=== PATIENT | female | born 1960 | race Caucasian/White ===

== ENCOUNTER → 2016-05-13 | Outpatient (CLI) | payer OTHER ==
--- NOTE | 2016-05-13 17:01 | Diagnostic Imaging Report ---
Three views of the lumbar spine. INDICATION: Low back pain. FINDINGS: There is right convexity scoliosis. The alignment at the posterior spinal line is satisfactory. The vertebral body heights are preserved. There is moderate disc height loss at the L4-L5 and mild disc height loss at the L3-L4 and L5-S1 levels. Multilevel anterior osteophytes noted. No posterior osteophyte is seen. Sclerotic degenerative changes in the lower lumbar spine facet joints also noted. There are sclerotic degenerative changes in the SI joints. IMPRESSION: Right convexity scoliosis. Degenerative changes. Dictated by: Dictated on workstation # [id number]
--- NOTE | 2016-05-13 17:04 | Diagnostic Imaging Report ---
Three views of the thoracic spine. INDICATION: Back pain. FINDINGS: There is satisfactory alignment of the thoracic spine. The vertebral body heights are preserved. There are multilevel anterior osteophytes noted. No posterior osteophytes of significance identified. The paraspinal soft tissues appear grossly unremarkable. IMPRESSION: Minimal degenerative changes. Dictated by: Dictated on workstation # [id number]
== END ==
LOC: RAD 15:26
PROVIDERS: ATTEND Family Medicine
DX: M54.5 Low back pain (principal)
CPT/HCPCS: 72072; 72100

== ENCOUNTER → 2016-05-21 | Outpatient (CLI) | payer OTHER ==
--- OUTSIDE RECORDS SUMMARY | 2016-05-21 11:58 | XMS REPORT | Continuity of Care Document ---
Author Author [facility] Organization [facility] Address Unknown Phone Unavailable Allergies Active Description Code Type Severity Reaction Onset Reported/Identified Relationship to Patient Clinical Status Yes No Known Drug Allergies [id number] Drug Allergy Unknown N/ A 03/27/2007 Medications Problems Date Dx Coded Attending Type Code Diagnosis Diagnosed By 11/13/2014 ROSELINE REN MD Ot 793.80 02/27/2016 ELA SCHMITZ Ot Z12.31 ENCNTR SCREEN MAMMOGRAM FOR MALIGNANT NE 02/27/2016 ELA SCHMITZ Ot Z12.31 ENCNTR SCREEN MAMMOGRAM FOR MALIGNANT NE 05/13/2016 Ot 724.2 LUMBAGO 05/13/2016 Ot 564.00 UNSPEC CONSTIPATION 05/13/2016 Ot 592.0 CALCULUS OF KIDNEY 05/13/2016 Ot V76.12 OTH SCREEN MAMMO-MALIGN NEOPLASM OF [place] 05/13/2016 ROSELINE REN MD Ot V76.12 OTH SCREEN MAMMO-MALIGN NEOPLASM OF [place] 05/13/2016 ROSELINE REN MD Ot V76.12 OTH SCREEN MAMMO-MALIGN NEOPLASM OF [place] 05/13/2016 ROSELINE REN MD Ot 793.80 UNSPEC ABNORMAL MAMMOGRAM 05/13/2016 ELA SCHMITZ Ot Z12.31 ENCNTR SCREEN MAMMOGRAM FOR MALIGNANT NE Procedures Results Encounters ACCT No. Visit Date/Time Discharge Status Pt. Type Provider Facility Loc./Unit Complaint [id number] 11/11/2014 14:20:00 2014 23:59:59 CLS Outpatient ROSELINE REN MD [facility] RAD ABN MAMMO [id number] 10/29/2014 13:40:00 2014 23:59:59 CLS Outpatient ROSELINE REN MD [facility] RAD SCREENING [id number] 10/03/2012 14:50:00 2012 23:59:59 CLS Outpatient GELA LOUIS, ROSELINE Tate [facility] RAD SCREENING [id number] 05/21/2016 11:55:00 ACT Outpatient JAVI LUCAS MD [facility] RAD BACK PAIN,BILAT HIP PAIN [id number] 05/13/2016 15:26:00 ACT Outpatient JAVI LUCAS MD [facility] RAD LOW BACK PAIN [id number] 02/26/2016 11:01:00 ACT Outpatient ELA SCHMITZ [facility] RAD SCREENING [id number] 08/26/2011 15:23:00 Document Registration [id number] 12/22/2010 16:07:00 Document Registration
--- NOTE | 2016-05-21 12:47 | Diagnostic Imaging Report ---
PROCEDURE: MRI lumbar spine. TECHNIQUE: Multiplanar, multisequence MRI of the lumbar spine was performed without contrast. INDICATION: Back pain. FINDINGS: The alignment of the posterior spinal line is satisfactory. The vertebral body heights are preserved. There is disc desiccation at all levels. There is moderate disc height loss at L3-L4 and L4-L5 levels. The cauda equina and conus medullaris appear grossly unremarkable. There is right convexity scoliosis centered at the L2-L3 level. T12-L1: No disc herniation, no spinal canal or foraminal stenosis. L1-L2: There is mild disc bulge and mild facet hypertrophy. No central canal or lateral recess stenosis. L2-L3: There is mild disc herniation, and mild facet hypertrophy. No central canal, lateral recess or foraminal stenosis. L3-L4: There is a diffuse disc bulge and there is mild to moderate facet arthropathy. No central canal stenosis. There is mild lateral recess stenosis on the left side only. The left foramen demonstrates moderate stenosis and minimal stenosis is seen in the right foramen. L4-L5: There is a diffuse disc bulge and bilateral mild facet arthropathy. No central canal or lateral recess stenosis. There is mild foraminal narrowing on the right side and minimal foraminal narrowing on the left. L5-S1: There is a diffuse disc bulge and only mild facet hypertrophy is seen. No central canal or lateral recess stenosis. There is severe foraminal stenosis on the right side. No foraminal stenosis is seen on the left. IMPRESSION: Scoliosis, disc and facet degenerative changes seen. There is severe foraminal stenosis on the right side at L5-S1. No significant spinal canal stenosis at any level. Dictated by: Dictated on workstation # [id number]
== END ==
LOC: RAD 11:55
PROVIDERS: ATTEND Family Medicine
DX: M48.06 Spinal stenosis, lumbar region (principal)
CPT/HCPCS: 72148

== ENCOUNTER → 2018-04-17 | Outpatient (CLI) | payer OTHER ==
--- NOTE | 2018-04-18 12:42 | Diagnostic Imaging Report ---
Indication: Routine screening. Comparison is made with prior mammogram from 02/26/2016 and 10/29/2014. 2-D and 3-D bilateral screening mammography was performed with CAD. Both breasts are heterogeneously dense, limiting the sensitivity of mammography. The fibronodular parenchymal pattern appears to be fairly stable. No dominant mass or malignant-appearing microcalcifications are seen. The axillae are unremarkable. Impression: BI-RADS category 2 No mammographic features suspicious for malignancy are identified. ACR BI-RADS Category 2: Benign findings. Result letter will be mailed to the patient. Note: At least 10% of breast cancer is not imaged by mammography. Dictated by: Dictated on workstation # [id number]
== END ==
LOC: RAD 15:16
PROVIDERS: ATTEND Family Medicine
DX: Z12.31 Encounter for screening mammogram for malignant neoplasm of breast (principal)
CPT/HCPCS: 77067

== ENCOUNTER → 2019-04-18 | Outpatient (CLI) | payer OTHER ==
--- NOTE | 2019-04-18 13:00 | Diagnostic Imaging Report ---
INDICATION: Routine screening. COMPARISON: 04/17/2018 and 02/26/2016. TECHNIQUE: 2D and 3D bilateral screening mammography was performed with CAD. FINDINGS: Both breasts are heterogeneously dense, limiting the sensitivity of mammography. The circumscribed densities appear stable. No spiculated mass or malignant appearing microcalcifications are seen. The axillae are unremarkable. IMPRESSION: No mammographic features suspicious for malignancy are identified. ACR BI-RADS Category 2: Benign findings. Result letter will be mailed to the patient. Note: At least 10% of breast cancer is not imaged by mammography. Dictated by: Dictated on workstation # [id number]
== END ==
LOC: RAD 11:11
PROVIDERS: ATTEND Nurse Practitioner Family
DX: Z12.31 Encounter for screening mammogram for malignant neoplasm of breast (principal)
CPT/HCPCS: 77067

== ENCOUNTER 2020-06-04 05:31 | Outpatient (RCR) | payer OTHER ==
[~2020-06-04] VITALS: Ht 167.7 cm; Wt 81.8 kg
[2020-06-04] MEDS ORDERED: DULO60CA59 PO (08:41)
[2020-06-04] MEDS ORDERED: ALPR1TAB7 PO (08:41)
[2020-06-04] MEDS ORDERED: CETI10TA49 PO (08:41)
[2020-06-04] MEDS ORDERED: ESTR0.5T PO (08:41)
== END 2020-06-04 10:41 | disposition home or self-care (01) ==
LOC: PREOP 05:31
PROVIDERS: ATTEND Internal Medicine
DX: Z01.818 Encounter for other preprocedural examination (principal); Z12.11 Encounter for screening for malignant neoplasm of colon; Z20.822 Contact with and (suspected) exposure to COVID-19
CPT/HCPCS: 87635

== ENCOUNTER → 2020-06-04 | Outpatient (CLI) | payer OTHER ==
[~2020-06-04] MED LIST: ALPR1TAB7 PO; CETI10TA49 PO; DULO60CA59 PO; ESTR0.5T PO
--- NOTE | 2020-06-04 14:01 | Diagnostic Imaging Report ---
Indication: Routine screening. Comparison is made prior mammogram 04/18/2019 and 04/17/2018. 2-D and 3-D bilateral screening mammography was performed with CAD. Both breasts are heterogeneously dense, limiting the sensitivity of mammography. Fibronodular parenchymal pattern is again noted. No spiculated mass or malignant appearing microcalcifications are seen. Axillae are unremarkable. IMPRESSION: BI-RADS Category 2 No mammographic features suspicious for malignancy are identified. ACR BI-RADS Category 2: Benign findings. Result letter will be mailed to the patient. Note: At least 10% of breast cancer is not imaged by mammography. Dictated by: Dictated on workstation # [id number]
== END ==
LOC: RAD 11:04
PROVIDERS: ATTEND Nurse Practitioner Family
DX: Z12.31 Encounter for screening mammogram for malignant neoplasm of breast (principal)
CPT/HCPCS: 77063; 77067

== ENCOUNTER → 2021-06-29 | Outpatient (CLI) | payer OTHER ==
--- NOTE | 2021-06-29 12:37 | Diagnostic Imaging Report ---
INDICATION: Routine screening. Comparison is made with prior mammogram 06/04/2020 and 04/18/2019. 2-D and 3-D bilateral screening mammography was performed with CAD. Both breasts are heterogeneously dense, limiting the sensitivity of mammography. The fibronodular parenchymal pattern appears to be stable. No spiculated mass or malignant-appearing microcalcifications are seen. Axillae are unremarkable. IMPRESSION: No mammographic features suspicious for malignancy are identified. ACR BI-RADS Category 2: Benign findings. Result letter will be mailed to the patient. Note: At least 10% of breast cancer is not imaged by mammography. BI-RADS Category 2 Dictated by: Dictated on workstation # [id number]
== END ==
LOC: RAD 10:30
PROVIDERS: ATTEND Nurse Practitioner Family
DX: Z12.31 Encounter for screening mammogram for malignant neoplasm of breast (principal)
CPT/HCPCS: 77063; 77067

== ENCOUNTER → 2022-11-15 | Outpatient (CLI) | payer OTHER ==
--- NOTE | 2022-11-15 14:39 | Diagnostic Imaging Report ---
INDICATION: Routine screening. COMPARISON: 06/29/2021 and 06/04/2020. TECHNIQUE: 2D and 3D bilateral screening mammography was performed with CAD. FINDINGS: Both breasts are heterogeneously dense, limiting the sensitivity of mammography. Numerous circumscribed nodules are identified in the bilateral breasts which appear to be waxing and waning, consistent with cysts. No spiculated mass or malignant-appearing microcalcifications are seen. There are benign calcifications noted. The axillae are unremarkable. IMPRESSION: No mammographic features suspicious for malignancy are identified. ACR BI-RADS Category 2: Benign findings. Result letter will be mailed to the patient. Note: At least 10% of breast cancer is not imaged by mammography. Dictated by: Dictated on workstation # [id number]
== END ==
LOC: RAD 11:02
PROVIDERS: ATTEND Nurse Practitioner Family
DX: Z12.31 Encounter for screening mammogram for malignant neoplasm of breast (principal)
CPT/HCPCS: 77063; 77067